=== PATIENT | female | born 1955 | race Caucasian/White ===

== ENCOUNTER → 2020-10-08 | Day surgery (SDC) | payer OTHER, MEDICARE ==
[~2020-10-08] MED LIST: AMOXICILLIN875 MG PO; ASPIR 8181 MG PO; BUSPIRONE HCL10 MG PO; CENTRUM SILVER1 EAC4 PO; EXCEDRIN CAPLE1 EACH PO; FAMOTIDINE 20 M20 MG PO; GLUCOSAMINE &1 EAC1; LISINOPRIL-HCT1 EAC1 PO; NEXIUM40 MG; OMEPRAZOLE; PRILOSEC 20 MG20 MG PO; TRAMADOL 50 MG50 MG PO; TURMERIC500 M1 PO
[2020-10-08 08:27] LABS: HEMATOCRIT 41.4 % (37.0-47.0); MCH 30.9 pg (26.0-34.0); MCHC 33.8 g/dL (28.0-37.0); MCV 91.2 fL (80.0-100.0); RBC 4.54 mil/uL (4.20-5.00); RDW-CV 13.7 % (10.5-14.5); WBC 9.5 thou/uL (4.0-11.0)
[2020-10-08 08:33] LABS: CALCIUM 8.8 mg/dL (8.5-10.1); CREATININE 0.7 mg/dL (0.6-1.3); POTASSIUM 3.9 mmol/L (3.5-5.1)
--- NOTE | 2020-10-08 09:23 | EKG ---
[place] [address] ELECTROCARDIOGRAM REPORT Name: SHIRA PIZANO Room: [facility]#: [id number] Admission: 10/08/20 Attend Phys: Kamar Pop, Discharge: Date of : 53 Date of Service: 10/08/20831 Report #: [id number] THIS REPORT FOR: //name// [facility] Test Date: 2020-10-08 Test Time: 08:32:47 Pat Name: SHIRA PIZANO Department: Room: Gender: Lighter: : 1955 Requested By: Tashia Dubon Order Number: [id number] Merced MD: Lazarus Charles Measurements Intervals Dennis Rate: 68 P: 17 PA: 178 QRS: -8 QRSD: 101 T: 37 QT: 413 QTc: 440 Interpretive Statements Sinus rhythm Compared to ECG 09/30/2016 14:30:08 No significant changes Electronically Signed On 10-08-2020 9:23:23 CDT by Lazarus Charles [email or web address] <ELECTRONICALLY SIGNED> By: Lazarus Charles MD, [facility] 10/08/20 0923 0832 Lazarus Charles MD, [facility] /EPI
--- NOTE | 2020-10-11 07:24 | OP ---
[address] [address] OPERATIVE REPORT Name: SHIRA PIZANO Room: [facility]#: [id number] Admission: 10/08/20 Attend Phys: Kamar Pop II Discharge: Date of : 53 Report #: [id number] THIS REPORT FOR: cc: Biju Alexander Ahmad W. DO Greiner, Robert F. II DO ~ DATE OF SERVICE: 10/08/2020 PREOPERATIVE DIAGNOSIS: Right knee lateral meniscus tear. POSTOPERATIVE DIAGNOSES: 1. Right knee lateral meniscus tear. 2. Grade 3 chondromalacia of patellofemoral groove. 3. 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 PROCEDURES PERFORMED: 1. Right knee arthroscopic surgery with partial lateral meniscectomy. 2. Abrasion chondroplasty of patellofemoral groove down to bleeding bone. 3. Abrasion chondroplasty of lateral femoral condyle down to bleeding bone. SURGEON: Kamar Pop II, DO SLOOP CAPTAIN: RED Garner ANESTHESIA: Per operative record. ESTIMATED BLOOD LOSS: Minimal. ANTIBIOTICS: Per operative record. DRAINS: None. COMPLICATIONS: None. CONDITION: Stable to recovery room. DESCRIPTION OF PROCEDURE: The patient was taken to the operative suite, placed supine on the operating table and given appropriate anesthesia. The patient's affected lower extremity was sterilely prepped and draped with well-padded knee arthroscopic conn. Surgery began by medial and lateral portal incisions. The arthroscope was advanced in the joint. There was shown to be grade 3 chondromalacia of patellofemoral groove. Utilizing a shaver, an abrasion chondroplasty was performed down to bleeding bone and then smoothed using Coblation wand. There was grade 3 chondromalacia of the lateral femoral condyle. Utilizing shaver, abrasion chondroplasty [place] [address] OPERATIVE REPORT Name: SHIRA PIZANO Room: [facility]#: [id number] Admission: 10/08/20 Attend Phys: Kamar Pop II Discharge: Date of : 53 Report #: [id number] bleeding bone and then smoothed using Coblation wand. Lateral meniscus was shown to have extensive complex tearing to the lateral posterior horn as well as extending around to the lateral anterior margin. A partial meniscectomy was performed utilizing baskets and shaver to resect the torn flap along the lateral meniscus and then smoothed using Coblation wand. A medial meniscus was probed and shown to have minor fraying and it was intact. ACL and PCL appeared intact to probing and testing. Final irrigation was then performed. Knee was drained of arthroscopic fluid, closed with 4-0 nylon in simple fashion. Dermabond and sterile dressing was applied. The patient transported to recovery room in stable condition. Counts were correct throughout the procedure. <ELECTRONICALLY SIGNED> By: Kamar Pop II, DO 10/11/20 0724 [id number] Pop II, DO /nt
== END | disposition home or self-care (01) ==
LOC: M.SUR 08:04
PROVIDERS: Anesthesiology; ATTEND Orthopaedic Surgery
DX: S83.281A Other tear of lateral meniscus, current injury, right knee, initial encounter (principal); M94.261 Chondromalacia, right knee; K21.9 Gastro-esophageal reflux disease without esophagitis; I10 Essential (primary) hypertension; Z98.890 Other specified postprocedural states; Z79.899 Other long term (current) drug therapy; Z88.8 Allergy status to other drugs, medicaments and biological substances; Z86.718 Personal history of other venous thrombosis and embolism; X58.XXXA Exposure to other specified factors, initial encounter; Y93.89 Activity, other specified; Y92.89 Other specified places as the place of occurrence of the external cause; Y99.8 Other external cause status